=== PATIENT | male | born 1950 | race Caucasian/White ===

== ENCOUNTER 2017-09-28 09:12 | Inpatient (IN) | payer OTHER ==
[~2017-09-28] VITALS: Ht 172.7 cm; Wt 102.0 kg
[2017-09-28 09:48] VITALS: BP 116/76
[2017-09-28 11:58] VITALS: BP 116/76
[2017-09-28 15:10] LABS: T3 TOTAL 1.1 ng/mL
[2017-09-28 16:03] LABS: CHOLESTEROL/HDL RATIO 3.2; PHOSPHOROUS 3.9 mg/dL (2.5-4.9)
[2017-09-28 16:42] LABS: FREE T4 1.43 ng/dL (0.76-1.46); FREE THYROXINE INDEX 3.7 ug/dL (1.4-4.5); T4(THYROXINE) 9.9 ug/dL (4.7-13.3)
[2017-09-28 20:30] VITALS: BP 136/80
[2017-09-29 01:58] LABS: microscopic required? NO
[2017-09-29 02:09] LABS: UA SPECIFIC GRAVITY 1.025 (1.005-1.035); urine erythrocyte NEGATIVE (NEGATIVE)
[2017-09-29 02:34] LABS: AMPHETAMINE QUAL UR NONE DETECTED (NEG <=1000)
[2017-09-29 05:48] VITALS: BP 139/76
[2017-09-29 06:22] LABS: CALCIUM 7.5 mg/dL (8.5-10.1); CARBON DIOXIDE 31.2 mmol/L (21-32); CHLORIDE SERUM 104 mmol/L (98-107); GFR1 > 60 mL/min; GLUCOSE SERUM 107 mg/dL (74-106); MAGNESIUM 1.9 mg/dL (1.8-2.4); PHOSPHOROUS 4.9 mg/dL (2.5-4.9); POTASSIUM SERUM 3.7 mmol/L (3.5-5.1); SODIUM SERUM 139 mmol/L (136-145)
[2017-09-29 07:19] LABS: BASOPHIL % 0.7 % (0-2); PLATELET COUNT 287 x10^3mcL (130-400)
[2017-09-29 07:20] LABS: RED CELL DISTRIBUTION WIDTH 17.5 % (11.5-14.5)
[2017-09-29] MEDS ORDERED: CALCIUM CARBON650 MG PO (09:17)
[2017-09-29 09:27] VITALS: BP 138/80
[2017-09-29 10:58] VITALS: BP 138/80
[2017-10-04 13:18] LABS: PTH INTACT 6 pg/mL (15-65)
== END 2017-09-29 12:55 | disposition home or self-care (01) | DRG 627 ==
LOC: MU 09:12 → DU 11:00 → MU 13:58
PROVIDERS: Family Medicine; Surgery
PROC: 0GTH0ZZ Resection of Right Thyroid Gland Lobe, Open Approach (ICD-10-PCS; 2017-09-28)
PROC: 07B20ZZ Excision of Left Neck Lymphatic, Open Approach (ICD-10-PCS; 2017-09-28)
PROC: 07B10ZZ Excision of Right Neck Lymphatic, Open Approach (ICD-10-PCS; 2017-09-28)
PROC: 0GBJ0ZZ Excision of Thyroid Gland Isthmus, Open Approach (ICD-10-PCS; 2017-09-28)
PROC: 0GTG0ZZ Resection of Left Thyroid Gland Lobe, Open Approach (ICD-10-PCS; principal; 2017-09-28 11:00)
DX: C73 Malignant neoplasm of thyroid gland (principal); I10 Essential (primary) hypertension; E11.9 Type 2 diabetes mellitus without complications; E66.9 Obesity, unspecified; N40.0 Benign prostatic hyperplasia without lower urinary tract symptoms; Z68.34 Body mass index [BMI] 34.0-34.9, adult
CPT/HCPCS: 82962; 83880; 84439; J0330; J0690; J1815; J2405; J2704; J2710; J3010; J3490; J7030; Q0092